=== PATIENT | female | born 1945 | race Caucasian/White ===

== ENCOUNTER 2022-06-09 19:23 | Emergency (ER) | payer MEDICARE, BC ==
[2022-06-09] MEDS ORDERED: Acetaminophen 500 MG Tab PO ONE (20:17)
[2022-06-09] MEDS ORDERED: traMADol 50 MG Tab PO ONE (20:39)
== END 2022-06-09 21:20 | disposition home or self-care (01) ==
LOC: FB.ED 19:23
DX: S82.002A Unspecified fracture of left patella, initial encounter for closed fracture (principal); S09.90XA Unspecified injury of head, initial encounter; Z88.0 Allergy status to penicillin; Z88.2 Allergy status to sulfonamides; Z79.899 Other long term (current) drug therapy; Z79.82 Long term (current) use of aspirin; V18.0XXA Pedal cycle driver injured in noncollision transport accident in nontraffic accident, initial encounter
CPT/HCPCS: 70450; 73562; 99284; A9270

== ENCOUNTER 2022-10-20 07:47 | Day surgery (SDC) | payer MEDICARE, BC ==
[~2022-10-20 07:47] MED LIST: Lactated Ringers 1,000 ML IV SCH; Sodium Chloride 0.9% 10 ML Syringe FLUSH PRN
== END 2022-10-20 11:35 | disposition home or self-care (01) ==
LOC: FB.SDS 07:47
PROVIDERS: ATTEND Surgery
DX: Z12.11 Encounter for screening for malignant neoplasm of colon (principal); K57.30 Diverticulosis of large intestine without perforation or abscess without bleeding; G43.909 Migraine, unspecified, not intractable, without status migrainosus; E66.9 Obesity, unspecified; Z68.28 Body mass index [BMI] 28.0-28.9, adult; Z80.0 Family history of malignant neoplasm of digestive organs; Z79.899 Other long term (current) drug therapy; Z88.0 Allergy status to penicillin; Z88.2 Allergy status to sulfonamides; Z88.1 Allergy status to other antibiotic agents; Z98.890 Other specified postprocedural states
CPT/HCPCS: 00812-QZ; J3490; J7120